=== PATIENT | female | born 1955 | race Hispanic/Latino ===

== ENCOUNTER 2020-12-25 07:51 | Observation (INO) | payer OTHER ==
[~2020-12-25] VITALS: Ht 160 cm; Wt 77.1 kg
[~2020-12-25 07:51] MED LIST: ROPIVACAINE 246.25 MG, EPINEPHRINE HCL 1:1000 1ML 0.5 MG, CLONIDINE HCL 0.08 MG in SODI... INJ ONE; SODIUM CHLORIDE 0.9% 500ML 500 ML ONE; TRANEXAMIC ACID 1,000 MG/10 ML ML ONE; TYLENOL325 MG PO; Vancomycin IV 1,000 MG ONE
[2020-12-25] MEDS ORDERED: SODIUM CHLORIDE 0.9% 50ML 100 ML ONE (08:56)
[2020-12-25] MEDS ORDERED: DEXAMETHASONE SOD PHOS 10 MG/1 ML VIAL ONE (08:57)
[2020-12-25] MEDS ORDERED: GABAPENTIN 300 MG CAP ONE (08:57)
[2020-12-25] MEDS ORDERED: CELECOXIB 200 MG CAP ONE (08:57)
[2020-12-25] MEDS ORDERED: BUPIVACAINE 7.5MG/ML /DEXTROSE 82.5MG/ML 2 ML AMP INJ ONE (10:18)
[2020-12-25] MEDS ORDERED: ONDANSETRON HCL INJ 2MG/ML 2ML 2 MG/ML VIAL IV PRN (12:45)
[2020-12-25] MEDS ORDERED: DOCUSATE SODIUM 100 MG CAP PO PRN (12:45)
[2020-12-25] MEDS ORDERED: HYDROCODONE/APAP 5MG-325MG TAB PO PRN (12:45)
[2020-12-25] MEDS ORDERED: ACETAMINOPHEN 650 MG SUPP PR PRN (12:45)
[2020-12-25] MEDS ORDERED: HYDROCODONE/APAP 7.5MG-325MG 1 EA TAB PO PRN (12:45)
[2020-12-25] MEDS ORDERED: SODIUM CHLORIDE 0.9% 1000ML 1,000 ML IV SCH (12:45)
[2020-12-25] MEDS ORDERED: DIPHENHYDRAMINE HCL INJ 50 MG/ML VIAL IV PRN (12:45)
[2020-12-25] MEDS ORDERED: POVIDONE IODINE 0.05% 0.05 % ML PO ONE (13:33)
[2020-12-25] MEDS ORDERED: LIDOCAINE HCL 2% LOCAL INJ 5 ML SDV VIAL INJ ONE (13:33)
[2020-12-25] MEDS ORDERED: SEVOFLURANE INHAL SOLN 250 ML PEN BTL ONE (13:33)
[2020-12-25] MEDS ORDERED: PROPOFOL IV EMULSION 10 MG/ML 20 ML VIAL ONE (13:33)
[2020-12-25] MEDS ORDERED: ONDANSETRON HCL INJ 2MG/ML 2ML 2 MG/ML VIAL ONE (13:33)
[2020-12-25] MEDS ORDERED: FENTANYL CITRATE/PF 100MCG/2 ML INJ ONE (13:44)
[2020-12-25 14:04] VITALS: BP 128/82
[2020-12-25 14:12] VITALS: BP 128/82
[2020-12-25 14:32] VITALS: BP 128/82
[2020-12-25] MEDS ORDERED: ACETAMINOPHEN 1000 MG/100 ML IV PRN (15:00)
[2020-12-25 15:53] VITALS: BP 117/70
[2020-12-25] MEDS ORDERED: ASPIRIN 325 MG TAB PO SCH (17:00)
[2020-12-25] MEDS ORDERED: CELECOXIB 100 MG CAP PO SCH (17:00)
[2020-12-25] MEDS ORDERED: Cefazolin 1 GM in SODIUM CHLORIDE 0.9% 50ML 50 ML IV SCH (20:00)
[2020-12-25] MEDS ORDERED: ZOLPIDEM TARTRATE 5 MG TAB PO PRN (21:00)
== END 2020-12-25 18:31 | disposition home or self-care (01) ==
LOC: OR 07:51 → PACU V 12:38 → IMCU 14:05
PROVIDERS: ADMIT Specialist; ATTEND Specialist
DX: M17.0 Bilateral primary osteoarthritis of knee (principal); Z96.652 Presence of left artificial knee joint; E66.9 Obesity, unspecified; Z68.30 Body mass index [BMI] 30.0-30.9, adult; K21.9 Gastro-esophageal reflux disease without esophagitis; Z20.822 Contact with and (suspected) exposure to COVID-19
CPT/HCPCS: 72170; 86850; 86900; 86920; C1713; C1776; G0378; J0171; J0690; J1100; J2001; J2405; J2795; J3010; J3370; J7040; U0002